=== PATIENT | male | born 1965 | race Caucasian/White ===

== ENCOUNTER → 2021-01-22 11:19 | Outpatient (CLI) | payer OTHER, SELFPAY ==
[2021-01-22 12:23] LABS: Basophils # 0.1 K/mm3 (0-0.2); Basophils % 0.6 % (0.1-2.0); Eosinophils # 0.3 K/mm3 (0.0-0.4); Eosinophils % 2.6 % (0.1-12.0); Hematocrit 48.6 % (42.0-52.0); Hemoglobin 16.9 g/dL (14.1-18.0); Lymphocytes # 2.4 K/mm3 (0.7-4.5); Lymphocytes % 23.5 % (10-50); Mean Corpuscular HGB Conc 34.7 g/dL (31.8-35.4); Mean Corpuscular Hemoglobin 30.4 pg (27.0-31.2); Mean Corpuscular Volume 87.6 fl (80-94); Monocytes # 0.8 K/mm3 (0.1-1.0); Monocytes % 8.1 % (1.7-9.3); Neutrophils # 6.6 K/mm3 (1.8-7.8); Neutrophils % 65.3 % (37.0-80.0); Platelet Count 270 K/mm3 (142-424); Red Blood Count 5.55 M/mm3 (4.60-6.20); White Blood Count 10.2 K/mm3 (4.8-10.8)
[2021-01-22 12:44] LABS: Alanine Aminotransferase 75 U/L (12-78); Albumin Level 4.6 g/dl (3.5-5.0); Albumin/Globulin Ratio 1.8 (1.1-1.8); Alkaline Phosphatase 66 U/L (38-126); Anion Gap 8.9 mEq/L (5-15); Aspartate Amino Transferase 41 U/L (17-59); Blood Urea Nitrogen 12 mg/dl (9-20); Calcium 9.4 mg/dl (8.4-10.2); Carbon Dioxide 29 mmol/L (22.0-30.0); Chloride 104 mmol/L (98-107); Chol/HDL Ratio 4.3 (1-3.5); Cholesterol 165 mg/dl (140-200); Estimated Glomerular Filt Rate 70 ml/min (>60); GFR (African American) 85 ML/MIN (>60); Globulin 2.5 g/dL (1.3-3.2); Glucose 90 mg/dl (74-100); HDL Cholesterol 38 mg/dl (40-60); Potassium 3.9 mmoL/L (3.5-5.1); Sodium 138 mmol/L (136-145); Total Protein,Serum 7.1 g/dl (6.3-8.2); Triglycerides 244 mg/dl (30-150); VLDL Cholesterol 49 mg/dL (0-40)
== END ==
PROVIDERS: Visit Provider Nurse Practitioner Family
DX: I25.10 Atherosclerotic heart disease of native coronary artery without angina pectoris (principal); I10 Essential (primary) hypertension; E78.00 Pure hypercholesterolemia, unspecified; E78.49 Other hyperlipidemia
CPT/HCPCS: 36415; 80053; 80061; 85025

== ENCOUNTER → 2023-06-27 11:13 | Outpatient (CLI) | payer OTHER, SELFPAY ==
--- NOTE | 2023-06-27 11:21 | XR_ITS ---
FINAL REPORT CLINICAL HISTORY: knee pain FINDINGS: 2 views of the right knee were obtained. There is no acute fracture or dislocation. There is mild degenerative change. There is a moderate knee joint effusion. IMPRESSION: Moderate knee effusion. No acute bony abnormality. Reviewed, Interpreted and Dictated by Paul Alcala III, MD Transcribed by Mat Ornelas Authenticated and [facility]
== END ==
PROVIDERS: PCP Family Medicine; Visit Provider Family Medicine
DX: M25.561 Pain in right knee (principal)
CPT/HCPCS: 73560

== ENCOUNTER → 2023-08-01 16:00 | Outpatient (CLI) | payer OTHER, SELFPAY ==
--- NOTE | 2023-08-01 16:00 | MR_ITS ---
FINAL REPORT CLINICAL HISTORY: MEDIAL SIDED knee pain. KNEE LOCKS UP FINDINGS: Multiplanar MR imaging of the right knee was performed without contrast. A focal tear is seen of the body of the medial meniscus. Also noted is a tear at the posterior root of the medial meniscus. There is medial subluxation of the body of the medial meniscus. The lateral meniscus is intact. The anterior and posterior cruciate ligaments are intact. Proximal medial collateral ligament sprain is noted. The lateral ligamentous complex is intact. The distal quadriceps tendon is intact. There is distal patellar tendinitis. There is no evidence of fracture. Mild degenerative changes are noted. 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 A moderate joint effusion is seen. The musculature is intact. No soft tissue mass or cyst is identified. IMPRESSION: Tears of the body and posterior root of the medial meniscus. 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 Authenticated and [facility]
== END ==
PROVIDERS: PCP Family Medicine; Visit Provider Orthopaedic Surgery
DX: M23.91 Unspecified internal derangement of right knee (principal)
CPT/HCPCS: 73721

== ENCOUNTER 2023-10-30 09:50 | Outpatient (CLI) | payer BC, SELFPAY ==
--- NOTE | 2023-10-30 09:58 | ECG_ITS ---
APPROVED REPORT Exam: Resting ECG HR:80 bpm ECG Measurements Heart Rate 80 AXES MO 161 P 44 QRSd 116 QRS -77 QT 369 T 41 QTc 405 Conclusion SINUS RHYTHM LEFT AXIS DEVIATION [QRS AXIS < -30] PATTERN CONSISTENT WITH PULMONARY DISEASE RIGHT BUNDLE BRANCH BLOCK [120+ ms QRS DURATION, UPRIGHT V1, 40+ ms S IN I/aVL/V4/V5/V6] ABNORMAL ECG UNCONFIRMED REPORT Electronically signed by : Reid Samuels MD 10/31/2023 20:12:21
--- NOTE | 2023-10-30 10:08 | XR_ITS ---
FINAL REPORT TECHNIQUE: Chest PA & Lateral CLINICAL HISTORY: pre op exam COMPARISON: None FINDINGS: 2 views of the chest were performed. The heart size is normal. The mediastinum is within normal limits. There is no acute cardiopulmonary process. There are no pleural effusions. There is no pneumothorax. The bony thorax appears intact. IMPRESSION: No acute cardiopulmonary process. Reviewed, Interpreted and Dictated by Kaiden Foster MD Transcribed by Terra Ji Authenticated and [facility]
[2023-10-30 10:32] LABS: Basophils % 0.3 % (0.1-2.0); Eosinophils # 0.4 K/mm3 (0.0-0.4); Eosinophils % 3.7 % (0.1-12.0); Hematocrit 50.2 % (42.0-52.0); Hemoglobin 17.5 g/dL (14.1-18.0); Lymphocytes # 3.7 K/mm3 (0.7-4.5); Lymphocytes % 38.3 % (10-50); Mean Corpuscular HGB Conc 34.8 g/dL (31.8-35.4); Mean Corpuscular Volume 89.1 fl (80-94); Mean Platelet Volume 7.3 fl (7.4-10.4); Monocytes # 0.7 K/mm3 (0.1-1.0); Monocytes % 7.3 % (1.7-9.3); Neutrophils # 4.9 K/mm3 (1.8-7.8); Neutrophils % 50.3 % (37.0-80.0); Platelet Count 259 K/mm3 (142-424); Red Blood Count 5.64 M/mm3 (4.60-6.20); White Blood Count 9.8 K/mm3 (4.8-10.8)
[2023-10-30 11:37] LABS: Chloride 104 mmol/L (98-107); Sodium 139 mmol/L (136-145)
[2023-10-30 11:38] LABS: Potassium 4.1 mmoL/L (3.5-5.1)
[2023-10-30 11:40] LABS: Alanine Aminotransferase 81 U/L (12-78); Albumin Level 4.3 g/dl (3.5-5.0); Albumin/Globulin Ratio 1.7 (1.1-1.8); Alkaline Phosphatase 52 U/L (38-126); Anion Gap 8.1 mEq/L (5-15); Aspartate Amino Transferase 50 U/L (17-59); Bilirubin,Total 0.5 mg/dl (0.2-1.3); Blood Urea Nitrogen 16 mg/dl (9-20); Carbon Dioxide 31 mmol/L (22.0-30.0); Cholesterol 192 mg/dl (140-200); Estimated Glomerular Filt Rate 63 ml/min (>60); GFR (African American) 76 ML/MIN (>60); Globulin 2.6 g/dL (1.3-3.2); Total Protein,Serum 6.9 g/dl (6.3-8.2); Triglycerides 246 mg/dl (30-150); VLDL Cholesterol 49 mg/dL (0-40)
[2023-10-30 11:41] LABS: Calcium 9.1 mg/dl (8.4-10.2); Chol/HDL Ratio 5.6 (1-3.5); Glucose 95 mg/dl (74-100); HDL Cholesterol 34 mg/dl (40-60)
[2023-10-30 11:53] LABS: Direct LDL Cholesterol 105.65 mg/dL (100-129)
[2023-10-30 16:23] LABS: Hemoglobin A1C 5.3 % (4.0-6.0)
== END 2023-10-30 23:59 ==
LOC: LAB 09:51
PROVIDERS: PCP Family Medicine; Visit Provider Orthopaedic Surgery
DX: S83.231A Complex tear of medial meniscus, current injury, right knee, initial encounter; E78.5 Hyperlipidemia, unspecified; I10 Essential (primary) hypertension; Z01.818 Encounter for other preprocedural examination
CPT/HCPCS: 36415; 71046; 80053; 80061; 83036; 85025; 93005

== ENCOUNTER 2023-11-08 11:15 | Day surgery (SDC) | payer BC, SELFPAY ==
[2023-11-07 12:20] VITALS: BMI 38.9
[2023-11-08] VITALS (8 sets, daily range): BP systolic 110–148; BP diastolic 73–91; PULSE 76–92; RESP 12–18; TEMP 36.1–36.7; O2SAT 92–97
[2023-11-08] MEDS: LACTATED RINGERS 1000ML 1,000 ML 25 ML IV (11:50)
[2023-11-08] MEDS: CEFAZOLIN SODIUM 2 GM in 0.9 % SODIUM CHLORIDE 100 ML IV (12:45)
[2023-11-08] MEDS: BUPIVACAINE 0.25% 30ML VIAL 75 MG (12:58)
[2023-11-08] MEDS: SODIUM CHLORIDE IRRIG SOLUTION 6,000 ML 100 ML IR (13:00)
--- NOTE | 2023-11-08 13:00 | P.PNANES_ITS ---
[facility] Disclaimer: The information contained in this section may have been updated after the patient was seen, as this information can be updated by other users. Medical History Hyperlipidemia Hypertension MIL (obstructive sleep apnea) Sleep apnea Surgical History H/O wrist surgery Family History Mother Cancer Coronary artery disease Diabetes Father Coronary artery disease Heart attack Hypertension Social History Smoking Status: Never smoker alcohol intake: never substance use type: denies use current occupational status: employed Travel in the last 8 weeks: None household members: spouse housing: house [facility] Anesthesia Checklist Patient Identification Patient Identification: Verbal (Name & ) Structural Data Admitted From: Home Planned Operative Procedure/s: r knee arthroscopy Consent for Planned Operative Procedure(s) Verified: Yes NPO Status Verified Time NPO: 00:00 Additional verifications Anesthesia Reactions: No Hx Blood Transfusions: No Blood Transfusion Reaction: No Airway Assessment Mallampati Score:: Class II C-Spine Mobility Assessed: Yes TMJ Mobility Assessed: Yes Dentition: Poor Dentition Neurological Assessment Level of Consciousness: Awake, Alert and Appropriate Anesthesia Plan Anesthesia Risk discussed: Yes Anesthesia Plan: Verified ASA Class: II Anesthesia Type: General
--- NOTE | 2023-11-08 13:17 | EXP.OP.NOTE ---
Date of procedure: 11/08/23 Pre-op Diagnosis:: Right knee medial meniscus tear Post-op Diagnosis:: Right knee medial meniscus tear with full-thickness chondral lesion medial femoral condyle Procedure performed:: Right knee arthroscopy partial medial meniscectomy Right knee arthroscopy with limited debridement synovectomy patellofemoral joint Surgeon:: Garrett Hope DO FORMING ROLL OPERATOR HEAVY DUTY:: Gallo Adair Anesthesia: GETA Estimated blood loss (mL): 0 Operative findings:: Large chondral lesion full-thickness grade 4 adjacent to meniscus tear on the medial femoral condyle along with tear and posterior horn body medial meniscus Operative note:: Patient is identified preoperatively. Right knee marked with yes my initials. Transported operative suite placed upon the operating bed general anesthesia ministered airway secured right lower extremity prepped and draped within the knee crews. Once prepped and draped final operative timeout performed to identify proper patient procedure and extremity everyone involved the case agreed there were no counter indications to beginning did receive preoperative antibiotics. Marking pen was used to alejandrina the bony landmarks of the knee and standard portal sites. Esmarch was used to exsanguinate the extremity pneumatic tourniquet was inflated to 300 mmHg. Skin knife was used incise standard anterior lateral portal blunt with trocar was placed in the patellofemoral joint. This exchanged with a camera. Then I swept into the medial joint line where the anterior medial portal was made under direct visualization with an 18-gauge spinal needle. Then the medial joint line there is evidence of tearing of the posterior horn and body of the medial meniscus using a combination of straight biter and sucker shaver partial medial meniscectomy was performed back to stable rim there is also an adjacent area of the medial femoral condyle just above the tear of the meniscus with a full-thickness grade 4 chondral lesion. The tibial cartilage was soft but intact. Attention brought in the intercondylar notch the ACL was seen and intact. Scope into the lateral joint line within the lateral joint line there was cartilage intact meniscus intact I swept into the medial lateral gutters and back in the patellofemoral joint there was significant synovitis in the patellofemoral joint which was debrided with the sucker shaver. Was debrided final drive-through the knee showed no further pathology skin was closed with nylon stitch sterile dressing placed from toe to thigh patient waken anesthesia taken recovery stable condition. Condition: stable Disposition: PACU Complications:: None apparent
--- NOTE | 2023-11-08 13:25 | P.PNANES_ITS ---
[facility] Anesthesia Record Part I Anesthesia Record I Intake, IV Amount: 1,500 Hydration: Adequate Estimated blood loss (mL): 0 Urine output (mL): 0 Blood Pressure: 110/78 SaO2: 92 Pulse Rate: 92 Airway Patency: Patent Respiratory Rate: 12 Temperature: 97 F Patient is:: Awake and Stable Stable to PACU at:: 12:25
--- NOTE | 2023-11-08 13:40 | SUR.PHASEI ---
PT IS IN NSR. UNABLE TO PRINT Rico BEAN RN AWARE AND WORK ORDER HAS BEEN SUBMITTED.
[2023-11-09 09:39] VITALS: BP 148/91; PULSE 87; RESP 18; TEMP 36.5; O2SAT 95
--- NOTE | 2023-11-09 09:39 | EXP.ANES.II ---
[facility] Anesthesia Record Part II Anesthesia Record Part II Discharge Time: 13:54 Destination: Surgical Day Care (OP Surgery) PACU nurse assessment reviewed?: Yes Patient Condition:: Good Anesthesia Complications:: None Swallowing reflex intact?: Yes Airway Patency: Patent Cyanosis?: No Blood Pressure: 148/91 SaO2: 95 Respiratory Rate: 18 Pulse Rate: 87 Temperature: 97.7 F Mental Status: Alert & Oriented Pain level:: 0 Nausea and/or vomitting:: None Intake, IV Amount: 0 Hydration: Adequate
== END 2023-11-08 14:15 | disposition home or self-care (01) ==
PROVIDERS: PCP Family Medicine; Visit Provider Orthopaedic Surgery
PROC: (CPT 29870; principal; 2023-11-08 13:00)
DX: S83.231A Complex tear of medial meniscus, current injury, right knee, initial encounter (principal); I10 Essential (primary) hypertension; E78.5 Hyperlipidemia, unspecified; Z79.899 Other long term (current) drug therapy
CPT/HCPCS: 29881; 29875; 96374; J0690; J2405

== ENCOUNTER 2024-01-23 09:00 | Outpatient (RCR) | payer BC, SELFPAY ==
--- NOTE | 2023-11-29 08:44 | HMH.PTOPEV ---
PT Outpatient Evaluation Rehab PT Outpatient Evaluation Start: 11/29/23 08:02 Freq: Status: Active Protocol: Document 11/29/23 08:02 PDESEROUX (Rec: 11/29/23 08:44 PDESEROUX [id number]) E-signed By Titus Rivera, PT Outpatient Therapy Subjective History Subjective History Pt. is a 58 year old male who presents to [facility] Outpatient Physical Therapy Services in [place] for the initial evaluation this date(11/29/23) w/ c/o acute and intermittent RLE knee P!, edema, and stiffness S/P RLE knee scope w / PMM on 11/08/23. Pt. reports initially complaining of RLE knee intermittent P! since March 2023, however, P! became constant and progressively started worsening in 2022. Pt. denies any trauma to onset of symptoms worsening. Pt. reports currently off occupational duties at [employer] for possibly 12 weeks, RTMD on 12/28/23 for further assessment. Pt. reports icing RLE knee 2x/day for 30 minutes . Pt. also reports being instructed to don AD PRN for uneven terrain ambulation. Current medications include Lisinopril, baby Aspirin, and Fish Oil. PMH includes S/P RUE wrist ORIF, Hypertension, Hyperlipidemia, OA, and family history of colon cancer( mother). New diagnosis of cancer in past 12 No months? Chief Complaint Pain,Stiff,Clicks,Swelling, Gives out/Unstable,Weakness Symptom Type Ache,Sharp,Stabbing,Burning Symptoms Relieved By Rest/Positioning,Ice,Elevation Symptoms Aggravated By Standing,Bending/Stooping, Physical Activity,Twisting, Walking,Lifting Prior Functional Limitations None Current Functional Limitations Lifting,Standing,Squatting, Recreation Activity,Walking, Stairs,Bending/Stooping Symptom Description Intermittent,Activity Dependent Level of pain today (0-10) 2 Pain scale - at its best (0-10) 0 Pain scale - at its worst (0-10) 6 Hip/Knee Eval Gait Observation General Gait Pattern Observation Antalgic Gait,Decrease Weight Bear (R),Decrease Stride Lngth (L) Assistive Device Assistive Devices None / NA Palpation Tenderness right Knee Palpation Finding Tenderness Knee Palpation Overall Comment grade 3 +TTP to medial jt. line MMT Hip Flexion Strength Grade 4 Good Hip Abduction Strength Grade 4 Good Hip Adduction Strength Grade 4 Good Hip Extension Strength Grade 4 Good Gluteus Adin Strength Grade 4 Good Hip External Rotation Strength Grade 4- Good- Hip Internal Rotation Strength Grade 4- Good- Knee Extension Strength Grade 4- Good- Knee Flexion Strength Grade 4- Good- Knee Extensors Muscle Tone Description Moderate Hypertonicity Knee Flexors Muscle Tone Description Moderate Hypertonicity ROM Knee Extension Active Range of Motion ( +3 degrees) Knee Extension Passive Range of Motion ( +1 degrees) Knee Flexion Active Range of Motion ( 115 degrees) Knee Flexion Passive Range of Motion ( 118 degrees) Knee ROM Limitations Soft Tissue Tightness,Muscle Weakness,Pain Special Tests Knee Valgus Stress Test Negative Right Knee Varus Stress Test Negative Right Outpatient Therapy Assessment Impairments Problems/Impairmments Palpation Tenderness,Impaired Range of Motion,Impaired Strength,Impaired Endurance, Impaired Gait Pattern,Impaired Walking,Impaired Standing, Impaired Lifting,Impaired Stair Climbing,Impaired Incline Stepping,Impaired Stepping on Uneven Surface, Impaired Squatting,Impaired Recreational Activities, Impaired Work Activities, Increased Edema,Subjective C/O Pain,Impaired Self Care/Self Management Prognosis Rehab Potential Good Comment w/ HEP compliancy Clinical Impression Consistent with Diagnosis Yes Consistent with S/P R knee scope w/ PMM Short Term Goals Number of Weeks 2 Decreased Palpation Tenderness Yes: grade 1-2 +TTP to TTP assessment above Decrease Subjective C/O Pain Yes: worse:01/18 Patient to be Ind w/ HEP Yes Art Objects Repairer Goals Number of Weeks 4-6 Decreased Palpation Tenderness Yes: grade 1 +TTP to TTP assessment above Increase Range of Motion Yes: RLE knee A/PROM WNL grossly Increase Strength Yes: 4+ to 5/5 RLE knee MMT scores grossly Improve Gait Pattern without Assistive Yes Device Increase Ability to Walk Yes: 1hr. w/o difficulty Increase Ability to Stand Yes: 30' w/o difficulty Improve Ability to Climb Stairs Yes Improve Ability to Step on Uneven Yes Surfaces Improve Tolerance to Work Activities Yes Improve LEFI Score Yes Decrease Subjective C/O Pain Yes: worse:-10/21 Improve Self Care/Self Management Yes Patient to be Ind w/ Advanced HEP Yes Outpatient Therapy Plan of Care Treatment Plan May Include Therapeutic Exercise Including Home Yes Exercise Program Manual Therapy Techniques Yes Neuromuscular Re-education Yes Therapeutic Activities to Return to Yes Previous Functional/Work Level Gait Training Yes ADL/Self Care Education Yes Thermal Modalities Yes Electrical Stimulation Yes Ultrasound/Phonophoresis Yes Iontophoresis Yes Vasopneumatic Compression Pump Yes Massage Yes Eval/Re-Eval Yes Frequency Times per week 2 Duration Number of Weeks 4-6 Addendums This patient is a candidate for social No or vocational rehab? Patient/Guardian verbally acknowledges Yes understanding of treatment program and consents to further treatment? Patient/Guardian verbally acknowledges Yes understanding of diagnosis, prognosis and goals for treatment? Eval Complexity PT Charges 75288 - Low Complexity Shoulder/Elbow Eval Shoulder Objective Measurements Elbow Objective Measurements PHYSICIAN CERTIFICATION: I certify the specified therapy services for Vidal Orozco are required, authorized, and reviewed every 30 days.
== END 2024-01-24 07:50 | disposition home or self-care (01) ==
LOC: PT 09:00
PROVIDERS: Visit Provider Orthopaedic Surgery
DX: M25.561 Pain in right knee (principal); S83.231D Complex tear of medial meniscus, current injury, right knee, subsequent encounter
CPT/HCPCS: 97010; 97014; 97110; 97163; 97164; 97530; G0283

== ENCOUNTER 2024-10-15 09:40 | Outpatient (CLI) | payer BC, SELFPAY ==
[2024-10-15 16:35] LABS: Basophils # 0.1 K/mm3 (0-0.2); Basophils % 0.5 % (0.1-2.0); Eosinophils # 0.6 K/mm3 (0.0-0.4); Eosinophils % 4.9 % (0.1-12.0); Hematocrit 46.5 % (42.0-52.0); Hemoglobin 15.5 g/dL (14.1-18.0); Lymphocytes # 4.1 K/mm3 (0.7-4.5); Lymphocytes % 35.8 % (10-50); Mean Corpuscular HGB Conc 33.3 g/dL (31.8-35.4); Mean Corpuscular Hemoglobin 29.4 pg (27.0-31.2); Mean Corpuscular Volume 88.2 fl (80-94); Mean Platelet Volume 9.5 fl (7.4-10.4); Monocytes % 9.1 % (1.7-9.3); Neutrophils # 5.7 K/mm3 (1.8-7.8); Neutrophils % 49.4 % (37.0-80.0); Platelet Count 274 K/mm3 (142-424); Red Blood Count 5.27 M/mm3 (4.60-6.20); Red Cell Distribution Width 13.6 % (11.5-17.5); White Blood Count 11.5 K/mm3 (4.8-10.8)
[2024-10-15 17:55] LABS: Alanine Aminotransferase 86 U/L (12-78); Albumin Level 4.8 g/dl (3.5-5.0); Albumin/Globulin Ratio 2.3 (1.1-1.8); Alkaline Phosphatase 65 U/L (38-126); Anion Gap 14.8 mEq/L (5-15); Aspartate Amino Transferase 58 U/L (17-59); Bilirubin,Total 0.5 mg/dl (0.2-1.3); Blood Urea Nitrogen 19 mg/dl (9-20); Calcium 9.3 mg/dl (8.4-10.2); Carbon Dioxide 25 mmol/L (22.0-30.0); Chloride 107 mmol/L (98-107); Chol/HDL Ratio 5.7 (1-3.5); Cholesterol 201 mg/dl (140-200); Estimated Glomerular Filt Rate 77 ml/min (>60); GFR (African American) 93 ML/MIN (>60); Globulin 2.1 g/dL (1.3-3.2); Glucose 75 mg/dl (74-100); HDL Cholesterol 35 mg/dl (40-60); Potassium 3.8 mmoL/L (3.5-5.1); Sodium 143 mmol/L (136-145); Total Protein,Serum 6.9 g/dl (6.3-8.2); Triglycerides 293 mg/dl (30-150); VLDL Cholesterol 59 mg/dL (0-40)
[2024-10-15 18:06] LABS: Direct LDL Cholesterol 102.82 mg/dL (100-129)
[2024-10-15 18:36] LABS: HIV Combo NEGATIVE (Negative)
[2024-10-15 18:45] LABS: Hepatitis C Ab Qual. W/ RFX NEGATIVE (Negative)
== END 2024-10-15 23:59 | disposition home or self-care (01) ==
LOC: LAB.DROPOF 10-16 09:40
PROVIDERS: PCP Family Medicine; Visit Provider Family Medicine
DX: I10 Essential (primary) hypertension (principal); Z11.59 Encounter for screening for other viral diseases; E78.5 Hyperlipidemia, unspecified; Z11.4 Encounter for screening for human immunodeficiency virus [HIV]
CPT/HCPCS: 80053; 80061; 85025; 86803; 87389

== ENCOUNTER 2025-01-17 10:00 | Outpatient (CLI) | payer BC, SELFPAY ==
[2025-01-17 17:25] LABS: Albumin Level 4.2 g/dl (3.5-5.0); Chloride 107 mmol/L (98-107); Sodium 139 mmol/L (136-145)
[2025-01-17 17:28] LABS: Alanine Aminotransferase 76 U/L (12-78); Albumin/Globulin Ratio 1.7 (1.1-1.8); Alkaline Phosphatase 57 U/L (38-126); Aspartate Amino Transferase 46 U/L (17-59); Bilirubin,Total 0.6 mg/dl (0.2-1.3); Blood Urea Nitrogen 16 mg/dl (9-20); Carbon Dioxide 27 mmol/L (22.0-30.0); Cholesterol 169 mg/dl (140-200); Estimated Glomerular Filt Rate 62 ml/min (>60); GFR (African American) 76 ML/MIN (>60); Globulin 2.5 g/dL (1.3-3.2); Total Protein,Serum 6.7 g/dl (6.3-8.2); Triglycerides 203 mg/dl (30-150); VLDL Cholesterol 41 mg/dL (0-40)
[2025-01-17 17:29] LABS: Calcium 9.3 mg/dl (8.4-10.2); Chol/HDL Ratio 4.1 (1-3.5); Glucose 96 mg/dl (74-100); HDL Cholesterol 41 mg/dl (40-60)
[2025-01-17 17:40] LABS: Direct LDL Cholesterol 96.44 mg/dL (100-129)
== END 2025-01-17 23:59 | disposition home or self-care (01) ==
LOC: LAB.DROPOF 01-20 10:53
PROVIDERS: PCP Nurse Practitioner Family; Visit Provider Nurse Practitioner Family
DX: E78.5 Hyperlipidemia, unspecified (principal)
CPT/HCPCS: 80053; 80061

== ENCOUNTER 2025-07-17 09:43 | Outpatient (CLI) | payer BC, SELFPAY ==
[2025-07-17 17:08] LABS: Hematocrit 47.4 % (42.0-52.0); Hemoglobin 16.4 g/dL (14.1-18.0); Immature Granulocytes % 0.3 %; Mean Corpuscular HGB Conc 34.6 g/dL (31.8-35.4); Mean Corpuscular Hemoglobin 30.2 pg (27.0-31.2); Mean Corpuscular Volume 87.3 fl (80-94); Nucleated Red Blood Cells % 0 %; Platelet Count 299 K/mm3 (142-424); Red Blood Count 5.43 M/mm3 (4.60-6.20); Red Cell Distribution Width-SD 43.7 fL; White Blood Count 10.1 K/mm3 (4.8-10.8)
[2025-07-17 17:14] LABS: Albumin Level 4.9 g/dl (3.5-5.0); Chloride 103 mmol/L (98-107); Potassium 3.9 mmoL/L (3.5-5.1); Sodium 138 mmol/L (136-145)
[2025-07-17 17:17] LABS: Alanine Aminotransferase 81 U/L (12-78); Albumin/Globulin Ratio 2.3 (1.1-1.8); Alkaline Phosphatase 56 U/L (38-126); Anion Gap 10.9 mEq/L (5-15); Aspartate Amino Transferase 54 U/L (17-59); Bilirubin,Total 0.9 mg/dl (0.2-1.3); Blood Urea Nitrogen 13 mg/dl (9-20); Calcium 8.6 mg/dl (8.4-10.2); Carbon Dioxide 28 mmol/L (22.0-30.0); Cholesterol 152 mg/dl (140-200); Creatinine,Serum 1.10 mg/dl (0.66-1.25); Estimated Glomerular Filt Rate 69 ml/min (>60); GFR (African American) 83 ML/MIN (>60); Globulin 2.1 g/dL (1.3-3.2); Glucose 102 mg/dl (74-100); HDL Cholesterol 38 mg/dl (40-60); Total Protein,Serum 7.0 g/dl (6.3-8.2); Triglycerides 171 mg/dl (30-150)
[2025-07-18 11:49] LABS: Hemoglobin A1C 6.0 % (4.0-6.0)
== END 2025-07-17 23:59 ==
LOC: LAB.DROPOF 07-21 09:43
PROVIDERS: PCP Nurse Practitioner Family; Visit Provider Nurse Practitioner Family
DX: E78.5 Hyperlipidemia, unspecified (principal); I10 Essential (primary) hypertension; R73.01 Impaired fasting glucose
CPT/HCPCS: 80053; 80061; 83036; 85025